=== PATIENT | female | born 2000 | race Caucasian/White ===

== ENCOUNTER 2024-09-16 10:14 | Emergency (ER) | payer OTHER, SELFPAY ==
[2024-09-16] VITALS (15 sets, daily range): BP systolic 98–127; BP diastolic 61–72; PULSE 59–98; RESP 12–19; TEMP 36.8; O2SAT 99–100; BMI 19.5
--- NOTE | 2024-09-16 10:24 | EKG_ITS ---
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
--- NOTE | 2024-09-16 10:24 | DI.RAD.S_ITS ---
PROCEDURE: XR CHEST 1V INDICATIONS: chest pain TECHNIQUE: One view of the chest was acquired. COMPARISON: None. FINDINGS: Surgical changes and devices: None. Lungs and pleura: Lungs are clear. No pleural effusions or pneumothorax. Mediastinum: Mediastinal contours appear normal. Heart size is normal. Bones and chest wall: No suspicious bony lesions. Overlying soft tissues appear unremarkable. IMPRESSION: No acute cardiopulmonary abnormality is seen. Dictated by: Chris Felton M.D. on 09/16/2024 at 11:03 Approved by: Chris Felton M.D. on 09/16/2024 at 11:03
--- NOTE | 2024-09-16 10:39 | PC.NURSE ---
Addendum entered by Sanna Mann R.N. 09/16/24 10:40: No leg swelling. Respirations regular and unlabored. Original Note: Chest discomfort 12/02; states it is worse when waking up; reports some sob also when waking up. No history or family history of cardiac issues. Denies hx of blood clots.
[2024-09-16 10:43] LABS: Add Manual Diff / Slide Review NO; Basophils Absolute Auto 100 /uL (0-100); Basophils Percent Auto 1.3 % (0-2); Eosinophils Absolute Auto 0 /uL (0-450); Eosinophils Percent Auto 0.4 % (2-4); Hematocrit 40.1 % (36-46); Hemoglobin 14.1 g/dL (12.0-16.0); Lymphocytes Absolute Auto 1300 /uL (1100-4500); Mean Corpuscular Hemoglobin 32.5 PG (26-34); Mean Corpuscular Volume 92.7 fL (80-100); Monocytes Absolute Auto 400 /uL (0-900); Monocytes Percent Auto 8.9 % (3-14); Neutrophils Absolute Auto 2700 /uL (1500-7000); Neutrophils Percent Auto 60.4 % (50-75); Platelet Count 141 X10^3/uL (150-400); Red Blood Cell Count 4.33 X10^6/uL (4.0-5.2); Red Cell Distribution Width 12.7 % (11.6-14.8); White Blood Cell Count 4.5 X10^3/uL (4.5-11.0)
[2024-09-16 10:50] LABS: Prothrombin Time 11.8 SECONDS (9.4-12.5)
[2024-09-16 10:53] LABS: PTT Partial Thromboplastin Tim 34 SECONDS (25.1-36.5)
[2024-09-16 10:54] LABS: Alanine Aminotransferase 15 IU/L (<35); Albumin 4.6 g/dL (3.5-5.0); Albumin Globulin Ratio 1.6 (1.0-2.8); Alkaline Phosphatase 46 U/L (38-126); Aspartate Aminotransferase 24 IU/L (14-36); BUN Creatinine Ratio 12.5 (6-22); Bilirubin Total 1.4 mg/dL (0.2-1.3); Blood Urea Nitrogen 10 mg/dL (7-17); Calcium 8.9 mg/dL (8.4-10.2); Carbon Dioxide 22 mmol/L (22-32); Chloride 105 mmol/L (98-107); Creatine Kinase 53 U/L (30-135); Estimated Glomerular Filt Rate > 60 mL/min (>60); Globulin 2.8 g/dL (1.7-4.1); Glucose 96 mg/dL (70-99); HEMOLYSIS < 15 (0-50); Lipase 64 U/L (23-300); Magnesium 1.7 mg/dL (1.6-2.3); Sodium 136 mmol/L (137-145); Total Protein 7.4 g/dL (6.3-8.2)
[2024-09-16] MEDS: ASPIRIN 81 MG CHEW TAB 324 MG PO (10:58)
[2024-09-16 11:06] LABS: NT-proBNP (BNP-Adult 18+) < 20 pg/mL (<125); Troponin I < 0.012 ng/mL (0.01-0.034)
--- NOTE | 2024-09-16 11:56 | ED.CHESTPAIN ---
HPI - Chest Pain General Chief Complaint: Chest Pain Stated Complaint: Chest pain Time Seen by Provider: 09/16/24 11:48 Source: patient Mode of arrival: Ambulatory Limitations: no limitations History of Present Illness HPI narrative: Patient here for reproducible sternal chest pain. Patient states she injured her right rib working out about a month ago and has not been working out since then. Started having sternal chest discomfort as well. Worse with deep breath. It is slightly uncomfortable with coughing. No hemoptysis. No exertional chest pain or dyspnea. Patient has no history of hypertension hyperlipidemia. Does not smoke. No family history of coronary disease. No family history of aortic dissection aneurysm or pulmonary embolism. No personal or family history of Marfan syndrome. Related Data Previous Rx's Medication Instructions Recorded methylprednisolone 4 mg tablets in See Rx Instructions PO .COMPLEX 09/16/24 a dose pack (Medrol (Tj)) #21 ea Allergies Allergy/AdvReac Type Severity Reaction Status Date / Time No Known Drug Allergies Allergy Verified 09/16/24 10:25 Review of Systems Review of Systems Narrative: GENERAL: Negative chills, fatigue, malaise, fever, sweats. HEENT: Negative sinus pain, ear pain, sore throat RESPIRATORY: Negative dyspnea, cough CARDIOVASCULAR: Positive chest pain, negative palpitations GASTROINTESTINAL: Negative vomiting, nausea, abdominal pain : Negative dysuria, frequency, hematuria MUSCULOSKELETAL: Negative muscle or bony pain SKIN: Negative rash, skin lesions NEUROLOGIC: Negative weakness, numbness ROS Unobtainable: All systems reviewed & are unremarkable except as noted in HPI and below Patient History Social History Smoking Status: Unknown if ever smoked Smoking Status: Unknown if ever smoked Exam Narrative Exam Narrative: GENERAL: in no distress, not toxic not dyspneic HEAD: Normocephalic. EYES: Pupils equal round ENT: Mucous membranes moist. NECK: Trachea midline. CARDIOVASCULAR: Regular rate and rhythm RESPIRATORY: Clear to auscultation. Breath sounds equal bilaterally. No wheezes, rales, or rhonchi. Nontender sternum but pain at the sternum with deep breaths and coughing. GASTROINTESTINAL: Abdomen soft, non-tender EXTREMITIES: No gross deformities. BACK: No flank tenderness. NEURO: AOx4. Clear speech SKIN: Warm and dry PSYCH: Not anxious, is cooperative Initial Vital Signs Initial Vital Signs: Vital Signs Temperature 98.2 F 09/16/24 10:15 Pulse Rate 89 09/16/24 10:15 Respiratory Rate 13 09/16/24 10:15 Blood Pressure 127/72 09/16/24 10:15 Pulse Oximetry 100 09/16/24 10:15 Oxygen Delivery Method Room Air 09/16/24 10:15 Scores HEART Score Heart Score history: Slightly Suspicious Heart Score EKG: Normal Heart Score Age: < 45 years old Heart Score risk factors: No known risk factors Heart Score troponin: < or = to normal limit Heart Score Total: 0 Course Orders Ordered: Discontinued Medications Aspirin (Aspirin 81 Mg Chew Tab) 324 mg PO NOW ONE Stop: 09/16/24 10:28 Last Admin: 09/16/24 10:58 Dose: 324 mg Documented By: MELANIE Sodium Chloride (Normal Saline 0.9%) 500 mls @ 1,000 mls/hr IV BOLUS ONE Stop: 09/16/24 12:25 Last Infusion: 09/16/24 12:44 Dose: Infused Documented By: Admin: 09/16/24 12:07 Dose: 1,000 mls/hr Documented By: EMERSON Ketorolac Tromethamine (Ketorolac 30 Mg/Ml Vial) 15 mg IV NOW ONE Stop: 09/16/24 11:57 Last Admin: 09/16/24 12:09 Dose: 15 mg Documented By: EMERSON Prednisone (Prednisone 20 Mg Tablet) 40 mg PO NOW ONE Stop: 09/16/24 15:40 Last Admin: 09/16/24 15:42 Dose: 40 mg Documented By: EMERSON Vital Signs Vital signs: Vital Signs - 8 hr 09/16/24 10:15 09/16/24 10:21 09/16/24 10:21 Temperature 98.2 F Pulse Rate 89 98 H Respiratory Rate 13 Blood Pressure 127/72 127/72 Pulse Oximetry 100 100 Oxygen Delivery Method Room Air 09/16/24 10:30 09/16/24 11:00 09/16/24 11:30 Temperature Pulse Rate 88 79 74 Respiratory Rate 19 14 Blood Pressure Pulse Oximetry 100 100 100 Oxygen Delivery Method 09/16/24 12:00 09/16/24 12:30 09/16/24 13:00 Temperature Pulse Rate 71 59 L 62 Respiratory Rate 17 19 Blood Pressure Pulse Oximetry 99 100 100 Oxygen Delivery Method Room Air 09/16/24 13:30 09/16/24 13:53 09/16/24 13:53 Temperature Pulse Rate 63 75 Respiratory Rate 17 Blood Pressure 119/71 Pulse Oximetry 100 100 Oxygen Delivery Method 09/16/24 14:28 Temperature Pulse Rate 61 Respiratory Rate 12 Blood Pressure 111/69 Pulse Oximetry 100 Oxygen Delivery Method MDM - Chest Pain Lab Data 09/16/24 10:34 09/16/24 10:34 Labs: Lab Results 09/16/24 Range/Units 10:34 WBC 4.5 (4.5-11.0) X10^3/uL RBC 4.33 (4.0-5.2) X10^6/uL Hgb 14.1 (12.0-16.0) g/dL Hct 40.1 (36-46) % MCV 92.7 (80-100) fL MCH 32.5 (26-34) PG MCHC 35.0 (30-36) % RDW 12.7 (11.6-14.8) % Plt Count 141 L (150-400) X10^3/uL Neut % (Auto) 60.4 (50-75) % Lymph % (Auto) 29.0 (25-40) % [place] % (Auto) 8.9 (3-14) % Eos % (Auto) 0.4 L (2-4) % Baso % (Auto) 1.3 (0-2) % Neut # (Auto) 2700 (8365-2511) /uL Lymph # (Auto) 1300 (8819-7617) /uL [place] # (Auto) 400 (0-900) /uL Eos # (Auto) 0 (0-450) /uL Baso # (Auto) 100 (0-100) /uL PT 11.8 (9.4-12.5) SECONDS INR 1.0 (0.9-1.3) APTT 34 (25.1-36.5) SECONDS Sodium 136 L (137-145) mmol/L Potassium 4.0 (3.4-5.1) mmol/L Chloride 105 (98-107) mmol/L Carbon Dioxide 22 (22-32) mmol/L BUN 10 (7-17) mg/dL Creatinine 0.80 (0.52-1.04) mg/dL Estimated GFR > 60 (>60) mL/min BUN/Creatinine Ratio 12.5 (6-22) Glucose 96 (70-99) mg/dL Calcium 8.9 (8.4-10.2) mg/dL Magnesium 1.7 (1.6-2.3) mg/dL Total Bilirubin 1.4 H (0.2-1.3) mg/dL AST 24 (14-36) IU/L ALT 15 (<35) IU/L Alkaline Phosphatase 46 (38-126) U/L Total Creatine Kinase 53 (30-135) U/L Troponin I < 0.012 (0.01-0.034) ng/mL NT-Pro-B Natriuret Pep < 20 (<125) pg/mL Total Protein 7.4 (6.3-8.2) g/dL Albumin 4.6 (3.5-5.0) g/dL Globulin 2.8 (1.7-4.1) g/dL Albumin/Globulin Ratio 1.6 (1.0-2.8) Lipase 64 (23-300) U/L Point of Care Testing Test Results Negative Imaging Data Chest x-ray: Radiologist's Impression: [place] [address] XRay Report Signed Patient: Monie White MR#: [id number] : 2000 Acct:[id number] Age/Sex: 23 / F Date of Service: 09/16/24 Loc: ED Accession Number: [id number] Procedure: XR chest 1V Ordering Provider: Casey Hardwick MD PROCEDURE: XR CHEST 1V INDICATIONS: chest pain TECHNIQUE: One view of the chest was acquired. COMPARISON: None. FINDINGS: Surgical changes and devices: None. Lungs and pleura: Lungs are clear. No pleural effusions or pneumothorax. Mediastinum: Mediastinal contours appear normal. Heart size is normal. Bones and chest wall: No suspicious bony lesions. Overlying soft tissues appear unremarkable. IMPRESSION: No acute cardiopulmonary abnormality is seen. Dictated by: Chris Felton M.D. on 09/16/2024 at 11:03 Approved by: Chris Felton M.D. on 09/16/2024 at 11:03 CT scan - chest: Radiologist's Impression: [address] [address] [address] Scan Report Signed Patient: Monie White MR#: [id number] : 2000 Acct:[id number] Age/Sex: 23 / F Date of Service: 09/16/24 Loc: ED Accession Number: [id number] Procedure: CT angio chest PE protocol Ordering Provider: Casey Hardwick MD PROCEDURE: CT ANGIO CHEST PE PROTOCOL INDICATIONS: Chest pain TECHNIQUE: After the administration of intravenous contrast, 2 mm thick sections acquired from the pulmonary apices to the posterior costophrenic angles. 3-dimensional maximum intensity projection (MIP) coronal and sagittal reformats were then acquired through the thorax. For radiation dose reduction, the following was used: automated exposure control, adjustment of mA and/or kV according to patient size. COMPARISON: None. FINDINGS: Image quality: Diagnostic. Pulmonary arteries: Pulmonary arteries are normal in size, and demonstrate no intraluminal filling defects to suggest central pulmonary embolism. Lower Neck: No enlarged lymph nodes. Thyroid: No thyroid nodules which require sonographic follow up, per consensus guidelines. Axillae: No enlarged lymph nodes. Chest Wall: Unremarkable. Bones: Unremarkable. Lungs and Pleura: No pneumothorax or pleural effusions. No consolidation or suspicious nodules. Heart: Heart size is normal. No pericardial effusion. Thoracic Vessels: No aortic aneurysm. Mediastinum and Verna: No enlarged lymph nodes. Esophagus: No wall thickening. No hiatal hernia. Upper Abdomen: Visualized upper abdomen solid organs and bowel loops appear normal. IMPRESSION: No pulmonary embolus. No acute cardiopulmonary process. Dictated by: Rigoberto Barbosa M.D. on 09/16/2024 at 15:19 Approved by: Rigoberto Barbosa M.D. on 09/16/2024 at 15:20 [facility] Narrative Medical decision making narrative: Patient here for reproducible sternal chest pain. Patient states she injured her right rib working out about a month ago and has not been working out since then. Started having sternal chest discomfort as well. Worse with deep breath. It is slightly uncomfortable with coughing. No hemoptysis. No exertional chest pain or dyspnea. Patient has no history of hypertension hyperlipidemia. Does not smoke. No family history of coronary disease. No family history of aortic dissection aneurysm or pulmonary embolism. No personal or family history of Marfan syndrome. After history and exam, CBC CMP chest x-ray EKG troponin BNP, patient denies does not want a test., may proceed to CT chest [facility] Medical records reviewed: No recent visit for this complaint Differential considered: Includes but not limited to costochondritis pleurisy pulmonary embolism aortic dissection STEMI non-STEMI Lab Test results independently reviewed as above. Pertinent findings: Troponin less than 0.012 BNP less than 20 Independently reviewed EKG normal sinus rhythm normal EKG rate 87 Imaging studies independently reviewed: Chest x-ray no acute finding CT chest no acute finding Consultations: None indicated at this time Re-evaluations: 11:59 a.[address] Patient agrees for CT chest and Toradol. 3:30 p.m.. Updated patient results. No changes with Toradol given here. Laboratory studies imaging studies are reassuring. Return precautions reviewed. This is likely chest wall discomfort. Patient has low heart risk factors. Return precautions reviewed with her. She desires discharge home. She will follow up with primary care in a week for re-evaluation. Discussion: Appropriate for discharge home exam is reassuring. Return precautions reviewed patient. Patient has low heart risk factors low heart score. Nontoxic at discharge. Return precautions reviewed. Work note provided. Patient desires discharge home. No repeat troponin indicated. Pain is reproducible Diagnosis: Costochondritis/atypical chest pain 3:41 p.m. at time of discharge and remove IV, patient did want to try steroid pack to help for relief. Discharge Plan Departure Patient Disposition: Home Clinical Impression: Costalchondritis Instructions: DI for Atypical Chest Pain, DI for Costochondritis Activity Restrictions/Additional Instructions: Your exam and laboratory studies and CT scan imaging and EKG are reassuring today. It is likely chest wall causing her discomfort. Usually it is the cartilage or bone in the sternum that can cause this discomfort as it is reproducible with deep breath and coughing. Continue Tylenol or ibuprofen for pain. Return if worse if any questions or concerns. Please see your family doctor in a week for re-evaluation. Please call provided primary care provider phone number to obtain family doctor, . Work note has been provided for you Prescriptions: New methylprednisolone [Medrol (Tj)] 4 mg tablets,dose pack See Rx Instructions .ROUTE .COMPLEX Qty: 21 0RF Rx Instructions: orally per package directions Stand Alone Forms: Patient Portal/API/Survey, Work Release Note
[2024-09-16] MEDS: SODIUM CHLORIDE 0.9% 500 ML 1000 ML IV (12:07)
[2024-09-16] MEDS: KETOROLAC 30 MG/ML VIAL 15 MG IV (12:09)
--- NOTE | 2024-09-16 13:04 | DI.CT.S_ITS ---
PROCEDURE: CT ANGIO CHEST PE PROTOCOL INDICATIONS: Chest pain TECHNIQUE: After the administration of intravenous contrast, 2 mm thick sections acquired from the pulmonary apices to the posterior costophrenic angles. 3-dimensional maximum intensity projection (MIP) coronal and sagittal reformats were then acquired through the thorax. For radiation dose reduction, the following was used: automated exposure control, adjustment of mA and/or kV according to patient size. COMPARISON: None. FINDINGS: Image quality: Diagnostic. Pulmonary arteries: Pulmonary arteries are normal in size, and demonstrate no intraluminal filling defects to suggest central pulmonary embolism. Lower Neck: No enlarged lymph nodes. Thyroid: No thyroid nodules which require sonographic follow up, per consensus guidelines. Axillae: No enlarged lymph nodes. Chest Wall: Unremarkable. Bones: Unremarkable. Lungs and Pleura: No pneumothorax or pleural effusions. No consolidation or suspicious nodules. Heart: Heart size is normal. No pericardial effusion. Thoracic Vessels: No aortic aneurysm. Mediastinum and Verna: No enlarged lymph nodes. Esophagus: No wall thickening. No hiatal hernia. Upper Abdomen: Visualized upper abdomen solid organs and bowel loops appear normal. IMPRESSION: No pulmonary embolus. No acute cardiopulmonary process. Dictated by: Rigoberto Barbosa M.D. on 09/16/2024 at 15:19 Approved by: Rigoberto Barbosa M.D. on 09/16/2024 at 15:20
[2024-09-16] MEDS: predniSONE 20 MG TABLET 40 MG PO (15:42)
== END 2024-09-16 15:45 | disposition home or self-care (01) ==
PROVIDERS: Emergency Provider Emergency Medicine
DX: M94.0 Chondrocostal junction syndrome [Tietze] (principal)
CPT/HCPCS: 71045; 71275; 80053; 81025; 82550; 83690; 83735; 83880; 84484; 85025; 85610; 85730; 93005; 93010; 96361; 96374; 99284; J1885; Q9967